=== PATIENT | male | born 1985 | race Caucasian/White ===

== ENCOUNTER 2024-11-11 06:20 | Outpatient (CLI) | payer OTHER, SELFPAY | END 2024-11-11 06:21 | disposition home or self-care (01) | LOC: AMB 11-12 12:37 | PROVIDERS: Visit Provider Family Medicine | DX: F29 Unspecified psychosis not due to a substance or known physiological condition (principal) | CPT/HCPCS: A0425; A0427 ==

== ENCOUNTER 2024-11-11 06:39 | Emergency (ER) | payer OTHER, SELFPAY ==
--- OUTSIDE RECORDS SUMMARY | 2024-11-11 06:41 | XMS_ITS | Encounter Summary ---
Author Organization [place] Address Formerly [facility] [place] [address] Care Team Providers Care Economics Consultant Name Role Phone Ramirez Ponce MD Primary Care Provider [phone] Reason for Visit * Reason Onset Date Comments MH/CD Inpatient 09/07/2020 Encounter Details Date Type Department Care Team ([facility] Contact Info) Description 09/07/2020 Telephone [facility] Behavioral Health Intake [address] [place] [phone] Generic, Behavioral Intake, MH/CD Inpatient Social History Tobacco Use Types Packs/Day Years Used Date Smoking Tobacco: Former Cigarettes Q uit: 11/08/2006 Alcohol Use Standard Drinks/Week Comments No 0 (1 standard drink = 0.6 oz pur e alcohol) Adolescent Education Answer Date Record ed Getting School Help Needed Not on file 04/26 Sex and Gender Information Value Date Recorded Sex Assigned at Not on file Legal Sex Male 4:43 AM GARDEN WORKER Gender Identity Not on file Sexual Orientation Not on file COVID-19 Exposure Response Date Recorded In the last month, have you been in contact with someone who was confirmed or suspected to have Coronavirus / COVID-19? No / Unsure 09/08/2020 12:51 AM GARDEN WORKER documented as of this encounter Miscellaneous Notes * Telephone Encounter - Vipin Prado - 09/07/2020 6:59 PM GARDEN WORKER S: [facility] ED ([phone]) called to place a 35 y/o male for inpatient mental health treatment. B: Pt brought himself to the [facility] ED on 09/06/20 for evaluation of paranoia. Pt has not been sleeping much in recent days. He was seen in the ED on 09/03/20 for similar presentation of psychosis.At that time he was given Zyprexa and felt better and went home. Pt again has been feeling very paranoid, like he is seeing signs in the community that are telling him things, like someone is trying to murder him all the time. Pt reports that he doesn't feel safe. He reported last night he saw a red cross by the road and he took this to mean that he was in hell. Pt is paranoid about a sore throat he has been having and that this is being caused by a plant that is down the road from him. Pt thinks someone has been getting into his house and taking things. Pt appears highly anxious. He reports he has been struggling with getting out of the house. Pt reports seeing things that become signsor codes that trigger thoughts he needs to manage. He also stated to the commercial illustrator you need to close [employer] [facility] [place] and [facility] multiple times. Pt denies taking any street drugs or alcohol. UDS is positive for benzodiazepines. Negative for SARS-CoV-2. Medically cleared. A: 72 hour hold. R: Left message for [place] Behavioral operations and maintenance technican at 1913. rotor assembler approved admission to [address] [place] [address] at 1923. Unit notified at 193. ED notified at 1940. Patient cleared and ready for behavioral bed placement: Yes EN WORKER documented in this encounter Plan of Treatment Not on file documented as of this encounter Visit Diagnoses Not on filedocumented in this encounter Care Teams Economics Consultant Relationship Specialty Start Date End Date Ramirez Ponce MD [address] [place] [address] PCP - General 04/04/07 documented as of this encounter
--- OUTSIDE RECORDS SUMMARY | 2024-11-11 06:41 | XMS_ITS | Clinical Summary ---
Author Organization [place] Address [address] [place] [address] Care Team Providers Care Draughtsman Name Role Phone Ramirez Ponce MD Primary Care Provider [phone] Allergies No known active allergies Medications QUEtiapine (SEROQUEL) 300 MG tabletIndication s:Schizoaffectiv e disorder, unspecified type (H) Take 1 tablet (300 mg) by mouth At Bedtime 30 tablet 09/10/2020 Active QUEtiapine (SEROQUEL) 50 MG tabletIndication s:Schizoaffectiv e disorder, unspecified type (H) Take 1 tablet (50 mg) by mouth 2 times daily as needed (anxiety) 30 tablet 09/11/2020 Active Active Problems Problem Noted Date Diagnosed Date Suicidal behavior 09/08/2020 CARDIOVASCULAR SCREENING; LDL GOAL LESS THAN 160 08/20/2009 Anxiety state 10/20/2007 Cannabis abuse 10/20/2007 Panic disorder without agoraphobia 10/20/2007 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 10/20/2007 Immunizations Name Administration Dates Next Due TDAP Vaccine (Adacel) 11/29/2008 Family History Medical History Relation Comments Unknown/Adopted Other Relation Status Comments Other Social History Tobacco Use Types Packs/Day Years [...] on file Legal Sex Male 4:43 AM CONSUMER AFFAIRS MANAGER Gender Identity Not on file Sexual Orientation Not on file Last Filed Vital Signs Vital Sign Reading Time Taken Comments Blood Pressure 107/70 09/16/2020 6:00 AM CONSUMER AFFAIRS MANAGER Pulse 95 09/16/2020 6:00 AM CONSUMER AFFAIRS MANAGER Temperature 37.2 C (98.9 F) 09/16/2020 6:00 AM CONSUMER AFFAIRS MANAGER Respiratory Rate 16 09/16/2020 6:00 AM CONSUMER AFFAIRS MANAGER Oxygen Saturation 98% 09/16/2020 6:00 AM CONSUMER AFFAIRS MANAGER Inhaled Oxygen Concentration - - Weight 69.5 kg (153 lb 3.2 oz) 09/08/2020 1:35 A M CONSUMER AFFAIRS MANAGER Height 177.8 cm (5' 10) 09/08/2020 1:35 AM CONSUMER AFFAIRS MANAGER Body Mass Index 21.98 09/08/2020 1:35 AM CONSUMER AFFAIRS MANAGER Plan of Treatment Not on file Insurance CHOICE * Guarantor: LUCITA KOLB Account Type Relation to Patient Date of Phone Billing Address Employer Related Employer [phone] [facility] Business e via [place] [employer] [id number] [facility] CHOICE Advance Directives For more information, please contact: [phone] * Full Code (Latest Code Status on File) Date Activated Date Inactivated Comments 09/08/2020 1:41 AM 09/16/2020 2:35 PM All basic and advanced life-sustaining interventions are performed as appropriate Question Answer Comments Code status determined by: Other (please yeison t) Care Teams Draughtsman Relationship Specialty Start Date End Date Ramirez Ponce MD [address] [facility] [place] [address] PCP - General 04/04/07
--- OUTSIDE RECORDS SUMMARY | 2024-11-11 06:41 | XMS_ITS | Clinical Summary ---
Author Organization [employer] [facility] Address [address] [place] [address] Care Team Providers Care C Wpf Developer Name Role Phone Pcp, No Primary Care Provider Unavailabl e Allergies No known active allergies Medications QUEtiapine 100 mg tabletIndicatio ns:Schizoaffect adeel disorder, bipolar type (HC),Paranoia (HC) Take 1 Tablet (100 mg) by mouth at bedtime. 90 Tablet 5 Active QUEtiapine (SEROQUEL) 100 mg tabletIndicatio ns:Schizoaffect adeel disorder, bipolar type (HC),Paranoia (HC) Take 1 Tablet (100 mg) by mouth at bedtime. 90 Tablet 1 5 10/19/19 25 Discontinu ed(*Availa bility/For mulary change/Cos t of medication ) Active Problems Problem Noted Date Diagnosed Date Major depressive disorder, r ecurrent episode, severe, without mention of psychotic behavior 10/20/2007 Panic disorder without agoraphobia 10/20/2007 Anxiety state, unspecified 10/20/2007 Cannabis abuse, unspecified 10/20/2007 Encounters Date Type Department Care Team Description 10/31/2024 Travel 10/30/2024 Travel 10/17/2024 Refill [facility] [address] [place] [address] Obdulia Bundy NP Refill Request (Quetiapine) 09/24/2024 7:30 AM CDT Office Visit [facility] [address] [place] [address] Malecha, Obdulia Katelyn, DIRECT CHILL CASTER Medication Management (Things are fine) 09/24/2024 Travel 09/17/2024 Refill [facility] [address] [place] [address] Obdulia Bundy NP Refill Request (Quetiapine) from Last 3 Months Immunizations Immunization Administration Dates Next Due DTP 02/09/1988,1983,1983 ,1983 Hepatitis B (Peds) 08/16/1996,02/23/1996 MMR 11/16/1995,10/25/1984 Oral Polio Vaccine 02/09/1988,1983, 984,1983 Td (Age >=7 Years) 05/17/2022,02/23/1996 Tdap 11/29/2008 Tdap, Unspecified 11/29/2008 Social History Tobacco Use Types Packs/Day Years Used Date Smoking Tobacco: Never Smokeless Tobacco: Never Tobacco Cessation:Counseling Given: Not Answered Alcohol Use Standard Drinks/Week Comments Not Currently 0 (1 standard drink = 0.6 oz pur e alcohol) PHQ-2 Answer Date Recorded PHQ-2 TOTAL SCORE 2 09/24/2024 Alcohol Use Answer Date Recorded How often do you have a drink containing alcohol ? 1 07/14/2021 How many drinks containing a lcohol do you have on a typical day when you are drinking? 0 07/14/2021 Frequency of Binge Drinking Not on file 10/2021 Financial Resource Strain Answer Date R ecorded Difficulty of Paying Living Expenses Not on file 07/11/2021 Difficulty of Paying Living Expenses Not on file 07/11/2021 Sex and Gender Information Value Date Recorded Sex Assigned at Not on file Legal Sex Male 7:22 AM CORPORATE RESPONSIBILITY OFFICER Gender Identity Not on file Sexual Orientation Not on file Obstetrics History Last Filed Vital Signs Vital Sign Reading Time Taken Comments Blood Pressure 120/76 09/24/2024 7:40 AM CDT Pulse 80 09/24/2024 7:40 AM CDT Temperature 37 C (98.6 F) 09/24/2020 8:16 AM CDT Respiratory Rate 20 08/24/2017 11:58 AM CORPORATE RESPONSIBILITY OFFICER Oxygen Saturation 97% 05/17/2022 8:05 AM CORPORATE RESPONSIBILITY OFFICER Inhaled Oxygen Concentration - - Weight 87 kg (191 lb 11.2 oz) 09/24/2024 7:40 AM CDT Height 175.3 cm (5' 9) 08/16/2022 8:05 AM CORPORATE RESPONSIBILITY OFFICER Body Mass Index 28.31 08/16/2022 8:05 AM CORPORATE RESPONSIBILITY OFFICER Plan of Treatment Health Maintenance Due Date Last Done Comments BMI (ht and wt on same day) for age 18+ 08/16/2023 08/16/2022, 05/17/2022, 12/16/2020, Additional history exists COVID-19 vaccine series ( season) 2024 Influenza Vaccine (Season Ended) 2025 Depression screening for age 12+ 09/24/2025 09/24/2024, 03/29/2024, 11/01/2023, Additional history exists Lipids for age 35-44 10/31/2029 10/31/2024, 09/24/2024, 06/06/2023, Additional history exists Tetanus booster 05/17/2032 05/17/2022, 11/09, 11/29/2008, Additional history exists Tdap Completed 11/29/2008, 11/29/2008 HIV for age 15-65 Completed 05/17/2022 Hepatitis C screening for age 18-79 Completed 05/17/2022 Pneumococcal series for age 6-49 Aged Out No longer eligible based on patient's age to complete this topic Procedures Procedure Name Priority Date/Time Associated Diagnosis Comments LIPID PANEL W REFLEX MEASURED LDL Routine 10/31/2024 10:45 AM CDT long term acute care registered nurse current use of antipsychotic medication HEPATIC FUNCTION PANEL Routine 10/31/2024 10:45 AM CDT long term acute care registered nurse current use of antipsychotic medication LIPID PANEL W REFLEX MEASURED LDL Routine 09/24/2024 7:53 AM CDT jail current use of antipsychotic medication HEMOGLOBIN A1C Routine 09/24/2024 7:53 AM CDT jail current use of antipsychotic medication COMP METABOLIC PANEL Routine 09/24/2024 7:53 AM CDT jail current use of antipsychotic medication TSH Routine 09/24/2024 7:53 AM CDT long term acute care registered nurse current use of antipsychotic medication CBC WITH AUTO DIFFERENTIAL Routine 09/24/2024 7:53 AM CDT jail current use of antipsychotic medication ANTI HIV 1/2 Routine 05/17/2022 8:35 AM CORPORATE RESPONSIBILITY OFFICER Screen for STD (sexually transmitted disease) ANTI HCV Routine 05/17/2022 8:35 AM CORPORATE RESPONSIBILITY OFFICER Encounter for hepatitis C screening test for low risk patient from Last 3 Months or Most Recently Relevant to Health Maintenance Results * (ABNORMAL) LIPID PANEL W REFLEX MEASURED LDL (10/31/2024 10:45 AM CDT) Only the most recent of2 resultswithin the time period is included. Pathologist [facility] CHOLESTEROL, TOTAL 137 <200 mg/dL [facility] HDL CHOLESTEROL 36(L) > OR = 40 mg/dL [facility] TRIGLYCERIDES 67 <150 mg/dL [facility] LDL-CHOLESTEROL 86 mg/dL (calc) [facility] Comment: Reference range: <100 Desirable range <100 mg/dL for primary prevention; <70 mg/dL for patients with CHD or diabetic patients with > or = 2 CHD risk factors. LDL-C is now calculated using the Leon-Grover calculation, which is a validated novel method providing better accuracy than the Friedewald equation in the estimation of LDL-C. Leon SS et al. FIDENCIO. 2013;310(19): 5522-6547 (http://education.[employer]faq/EAM578) CHOL/HDLC RATIO 3.8 <5.0 (calc) [facility] NON HDL CHOLESTEROL 101 <130 mg/dL (calc) [facility] Comment: For patients with diabetes plus 1 major ASCVD risk factor, treating to a non-HDL-C goal of <100 mg/dL (LDL-C of <70 mg/dL) is considered a therapeutic option. Blood BLOOD SPECIMEN / Unknown 10/31/2024 10:45 AM CDT 10/31/2024 10:46 AM CDT Obdulia Bundy DIRECT CHILL CASTER CHEMISTRY Final Re sult [facility] [address] [place] [address], [place] [phone] [email or web address] [address] [place] [address] * HEPATIC FUNCTION PANEL (10/31/2024 10:45 AM CDT) Pathologist [facility] PROTEIN, TOTAL 8.0 6.1 - 8.1 g/dL [facility] ALBUMIN 4.8 3.6 - 5.1 g/dL [facility] GLOBULIN 3.2 1.9 - 3.7 g/dL (calc) [facility] ALBUMIN/GLOBULIN RATIO 1.5 1.0 - 2.5 (calc) [facility] BILIRUBIN, TOTAL 0.9 0.2 - 1.2 mg/dL [facility] BILIRUBIN, DIRECT 0.2 < OR = 0.2 mg/dL [facility] BILIRUBIN, INDIRECT 0.7 0.2 - 1.2 mg/dL (calc) [facility] ALKALINE PHOSPHATASE 74 36 - 130 U/L [email or web address] AST 21 10 - 40 U/L [email or web address] ALT 26 9 - 46 U/L [email or web address] Blood BLOOD SPECIMEN / Unknown 10/31/2024 10:45 AM CDT 10/31/2024 10:46 AM CDT Obdulia Bundy DIRECT CHILL CASTER CHEMISTRY Final Re sult [facility] [address] [place] [address], [place] [phone] [email or web address] [address] [place] [address] * HEMOGLOBIN A1C (09/24/2024 7:53 AM CDT) HEMOGLOBIN A1C 5.2 <5.7 % of total Hgb [facility] Comment: For the purpose of screening for the presence of diabetes: <5.7% Consistent with the absence of diabetes 5.7-6.4% Consistent with increased risk for diabetes (prediabetes) > or =6.5% Consistent with diabetes This assay result is consistent with a decreased risk of diabetes. Currently, no consensus exists regarding use of hemoglobin A1c for diagnosis of diabetes in children. According to [place] Diabetes Association (ADA) guidelines, hemoglobin A1c <7.0% represents optimal control in non- diabetic patients. Different metrics may apply to specific patient populations. Standards of Medical Care in Diabetes(ADA). Blood BLOOD SPECIMEN / Unknown 09/24/2024 7:53 AM CDT 09/24/2024 7:53 AM CDT Obdulia Bundy DIRECT CHILL CASTER CHEMISTRY Final Re sult [facility] [address] [address], [place] [phone] [email or web address] [address] [place] [phone] * TSH (09/24/2024 7:53 AM CDT) Pathologist [facility] TSH 1.54 0.40 - 4.50 mIU/L [email or web address] Blood BLOOD SPECIMEN / Unknown 09/24/2024 7:53 AM CDT 09/24/2024 7:53 AM CDT Obdulia Bundy DIRECT CHILL CASTER CHEMISTRY Final Re sult [facility] [address] [place] [address], [place] [phone] [facility] [address] [place] [address] * CBC AND DIFFERENTIAL (09/24/2024 7:53 AM CDT) [facility] WHITE BLOOD CELL COUNT 6.3 3.8 - 10.8 Thousand/u L [facility] RED BLOOD CELL COUNT 5.02 4.20 - 5.80 Million/uL [facility] HEMOGLOBIN 15.0 13.2 - 17.1 g/dL [facility] HEMATOCRIT 44.3 38.5 - 50.0 % [facility] MCV 88.2 80.0 - 100.0 fL [facility] MCH 29.9 27.0 - 33.0 pg [facility] MCHC 33.9 32.0 - 36.0 g/dL [facility] Comment: For adults, a slight decrease in the calculated MCHC value (in the range of 30 to 32 g/dL) is most likely not clinically significant; however, it should be interpreted with caution in correlation with other red cell parameters and the patient's clinical condition. RDW 13.0 11.0 - 15.0 % [facility] PLATELET COUNT 200 140 - 400 Thousand/u L [facility] MPV 11.0 7.5 - 12.5 fL [facility] ABSOLUTE NEUTROPHILS 3,182 1,500 - 7,800 cells/uL [facility] ABSOLUTE LYMPHOCYTES 2,407 850 - 3,900 cells/uL [facility] ABSOLUTE MONOCYTES 586 200 - 950 cells/uL [facility] ABSOLUTE EOSINOPHILS 107 15 - 500 cells/uL [facility] ABSOLUTE BASOPHILS 19 0 - 200 cells/uL [facility] NEUTROPHILS 50.5 % [facility] LYMPHOCYTES 38.2 % [facility] MONOCYTES 9.3 % [facility] EOSINOPHILS 1.7 % [facility] BASOPHILS 0.3 % [facility] Blood BLOOD SPECIMEN / Unknown 09/24/2024 7:53 AM CDT 09/24/2024 7:53 AM CDT Obdulia Bundy DIRECT CHILL CASTER HEMATOLOGY Final Re sult [facility] [address] [place] [address], [facility] [address] [place] [address] * (ABNORMAL) COMP METABOLIC PANEL (09/24/2024 7:53 AM CDT) GLUCOSE 82 65 - 99 mg/dL [facility] Comment: Fasting reference interval UREA NITROGEN (BUN) 14 7 - 25 mg/dL [facility] CREATININE 1.20 0.60 - 1.29 mg/dL [facility] EGFR 78 > OR = 60 mL/min/1. 73m2 [facility] BUN/CREATININE RATIO SEE NOTE: 6 - 22 (calc) [facility] Comment: Not Reported: BUN and Creatinine are within reference range. SODIUM 140 135 - 146 mmol/L [facility] POTASSIUM 4.7 3.5 - 5.3 mmol/L [facility] CHLORIDE 107 98 - 110 mmol/L [facility] CARBON DIOXIDE 24 20 - 32 mmol/L [facility] CALCIUM 9.0 8.6 - 10.3 mg/dL [facility] PROTEIN, TOTAL 7.1 6.1 - 8.1 g/dL [facility] ALBUMIN 4.2 3.6 - 5.1 g/dL [facility] GLOBULIN 2.9 1.9 - 3.7 g/dL (calc) [facility] ALBUMIN/GLOBULIN RATIO 1.4 1.0 - 2.5 (calc) [facility] BILIRUBIN, TOTAL 0.4 0.2 - 1.2 mg/dL [facility] ALKALINE PHOSPHATASE 98 36 - 130 U/L [facility] AST 45(H) 10 - 40 U/L [facility] ALT 55(H) 9 - 46 U/L [facility] Blood BLOOD SPECIMEN / Unknown 09/24/2024 7:53 AM CDT 09/24/2024 7:53 AM CDT Obdulia Bundy DIRECT CHILL CASTER CHEMISTRY Final Re sult [facility] [address] [place] [address], [email or web address] [address] [place] [address] * ANTI HCV (05/17/2022 8:35 AM CORPORATE RESPONSIBILITY OFFICER) HEPATITIS C ANTIBODY Non-React adeel Non-React adeel 05/17/2022 3:45 PM CORPORATE RESPONSIBILITY OFFICER [facility] Comment:Antibodies to HCV no t detected; does not exclude the possibility of exposure to HCV. Blood BLOOD SPECIMEN / Unknown Venipuncture / Unknown 05/17/2022 8:35 AM CORPORATE RESPONSIBILITY OFFICER 05/17/2022 8:39 AM CORPORATE RESPONSIBILITY OFFICER us Lance Basilio MD SEND OUTS Final Re sult Performing Organization Address [facility]/ZIP Co de Phone Number [facility] [address] [place] [address], * ANTI HIV 1/2 (05/17/2022 8:35 AM CORPORATE RESPONSIBILITY OFFICER) Pathologist [facility] HIV-1/HIV-2 ANTIBODY Non-Reacti ve Non-Reacti ve 05/17/2022 3:43 PM CORPORATE RESPONSIBILITY OFFICER [facility] Comment:HIV-1 p24 and HIV-1/ HIV-2 Ab not detected. Blood BLOOD SPECIMEN / Unknown Venipuncture / Unknown 05/17/2022 8:35 AM CORPORATE RESPONSIBILITY OFFICER 05/17/2022 8:39 AM CORPORATE RESPONSIBILITY OFFICER us Lance Basilio MD SEND OUTS Final Re sult [facility] [address] [place] [address], from Last 3 Months or Most Recently Relevant to Health Maintenance Insurance [facility] Advance Directives * Full Code (Latest Code Status on File) Date Activated Date Inactivated Comments 10/20/2007 2:33 AM 10/23/2007 5:14 PM Care Teams C Wpf Developer Relationship Specialty Start Date End Date Pcp, Billie . PCP - General 10/19/07
--- OUTSIDE RECORDS SUMMARY | 2024-11-11 06:41 | XMS_ITS | Encounter Summary ---
Author Organization [facility] Address [address] [place] [address] Care Team Providers Care Art Gallery Director Name Role Phone Ramirez Ponce MD Primary Care Provider [phone] Reason for Visit * Reason Comments Medication Refill Encounter Details Date Type Department Care Team (Late st Contact Info) Description 09/30/2020 Refill [facility] [address] [phone] Tatyana Serrano, [place] [address] [place] [address] Medication Refill Social History Tobacco Use Types Packs/Day Years Used Date Smoking Tobacco: Former Cigarettes Q uit: 11/08/2006 Alcohol Use Standard Drinks/Week Comments No 0 (1 standard drink = 0.6 oz pur e alcohol) Sex and Gender Information Value Date Recorded Sex Assigned at Not on file Legal Sex Male 4:43 AM PLANNER SCHEDULER Gender Identity Not on file Sexual Orientation Not on file COVID-19 Exposure Response Date Recorded In the last month, have you been in contact with someone who was confirmed or suspected to have Coronavirus / COVID-19? No / Unsure 09/08/2020 12:51 AM PLANNER SCHEDULER documented as of this encounter Plan of Treatment Not on file documented as of this encounter Visit Diagnoses Diagnosis Schizoaffective disorder, unspecified type (H) documented in this encounter Care Teams Art Gallery Director Relationship Specialty [place] [address] [place] [address] [place] [address] PCP - General 04/04/07 documented as of this encounter
--- OUTSIDE RECORDS SUMMARY | 2024-11-11 06:41 | XMS_ITS | Encounter Summary ---
Author Organization [place] Address [address] [place] [address] Care Team Providers Care Rug Designer Name Role Phone Ramirez Ponce MD Primary Care Provider [phone] Reason for Visit * Reason Comments Medication Refill Encounter Details Date Type Department Care Team (Late st Contact Info) Description 10/15/2020 Refill [facility] [address] [phone] Tatyana Serrano, [place] [address] [place] [phone] Medication Refill Social History Tobacco Use Types Packs/Day Years Used Date Smoking Tobacco: Former Cigarettes Q uit: 11/08/2006 Alcohol Use Standard Drinks/Week Comments No 0 (1 standard drink = 0.6 oz pur e alcohol) Sex and Gender Information Value Date Recorded Sex Assigned at Not on file Legal Sex Male 4:43 AM MUSHROOM SPAWN MAKER Gender Identity Not on file Sexual Orientation Not on file documented as of this encounter Plan of Treatment Not on file documented as of this encounter Visit Diagnoses Diagnosis Schizoaffective disorder, unspecified type (H) documented in this encounter Care Teams Rug Designer Relationship Specialty Start Date End Date Ramirez Ponce MD [address] [facility] [place] [address] PCP - General 04/04/07 documented as of this encounter
[2024-11-11 06:51] VITALS: BP 147/108; PULSE 98; RESP 16; TEMP 35.5; O2SAT 98
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
--- OUTSIDE RECORDS SUMMARY | 2024-11-11 07:33 | XMS_ITS | Clinical Summary ---
Author Organization [place] Address [address] [place] [address] Care Team Providers Care Retail Department Manager Name Role Phone Ramirez Ponce MD Primary Care Provider [phone] Allergies No known active allergies Medications QUEtiapine [...] on file Legal Sex Male 4:43 AM OPERATIONS ANALYST Gender Identity Not on file Sexual Orientation Not on file Last Filed Vital Signs Vital Sign Reading Time Taken Comments Blood Pressure 107/70 09/16/2020 6:00 AM OPERATIONS ANALYST Pulse 95 09/16/2020 6:00 AM OPERATIONS ANALYST Temperature 37.2 C (98.9 F) 09/16/2020 6:00 AM OPERATIONS ANALYST Respiratory Rate 16 09/16/2020 6:00 AM OPERATIONS ANALYST Oxygen Saturation 98% 09/16/2020 6:00 AM OPERATIONS ANALYST Inhaled Oxygen Concentration - - Weight 69.5 kg (153 lb 3.2 oz) 09/08/2020 1:35 A M OPERATIONS ANALYST Height 177.8 cm (5' 10) 09/08/2020 1:35 AM OPERATIONS ANALYST Body Mass Index 21.98 09/08/2020 1:35 AM OPERATIONS ANALYST Plan of Treatment Not on file Insurance CHOICE * Guarantor: LUCITA KOLB Account Type Relation to Patient Date of Phone Billing Address Employer Related Employer [id number] [facility] [employer] [place] [id number] [facility] CHOICE Advance Directives For more information, please contact: [phone] * Full Code (Latest Code Status on File) Date Activated Date Inactivated Comments 09/08/2020 1:41 AM 09/16/2020 2:35 PM All basic and advanced life-sustaining interventions are performed as appropriate Question Answer Comments Code status determined by: Other (please yeison t) Care Teams Retail Department Manager Relationship Specialty Start Date End Date Ramirez Ponce MD [address] [facility] [place] [address] PCP - General 04/04/07
--- OUTSIDE RECORDS SUMMARY | 2024-11-11 07:33 | XMS_ITS | Encounter Summary ---
Author Organization [place] Address [address] [place] [address] Care Team Providers Care Wet Machine Operator Name Role Phone Ramirez Ponce MD Primary Care Provider [phone] Reason for Visit * Reason Comments Medication Refill Encounter Details Date Type Department Care Team (Late st Contact Info) Description 10/15/2020 Refill [facility] [address] [phone] Tatyana Serrano, [place] [address] [place] [address] [phone] Medication Refill Social History Tobacco Use Types Packs/Day Years Used Date Smoking Tobacco: Former Cigarettes Q uit: 11/08/2006 Alcohol Use Standard Drinks/Week Comments No 0 (1 standard drink = 0.6 oz pur e alcohol) Sex and Gender Information Value Date Recorded Sex Assigned at Not on file Legal Sex Male 4:43 AM CELL PHONE REPAIR TECHNICIAN Gender Identity Not on file Sexual Orientation Not on file documented as of this encounter Plan of Treatment Not on file documented as of this encounter Visit Diagnoses Diagnosis Schizoaffective disorder, unspecified type (H) documented in this encounter Care Teams Wet Machine Operator Relationship Specialty Start Date End Date Ramirez Ponce MD [address] [facility] [place] [address] PCP - General 04/04/07 documented as of this encounter
--- OUTSIDE RECORDS SUMMARY | 2024-11-11 07:33 | XMS_ITS | Encounter Summary ---
Author Organization [place] Address [facility] [place] [address] Care Team Providers Care Roller Embosser Name Role Phone Ramirez Ponce MD Primary Care Provider [phone] Reason for Visit * Reason Onset Date Comments MH/CD Inpatient 09/07/2020 Encounter Details Date Type Department Care Team ([facility] Contact Info) Description 09/07/2020 Telephone [facility] Behavioral Health Intake [address] [place] [phone] Generic, Behavioral Intake, MH/CD Inpatient Social [...] on file Legal Sex Male 4:43 AM CREDIT AND COLLECTIONS ANALYST Gender Identity Not on file Sexual Orientation Not on file COVID-19 Exposure Response Date Recorded In the last month, have you been in contact with someone who was confirmed or suspected to have Coronavirus / COVID-19? No / Unsure 09/08/2020 12:51 AM CREDIT AND COLLECTIONS ANALYST documented as of this encounter Miscellaneous Notes * Telephone Encounter - Vipin Prado - 09/07/2020 6:59 PM CREDIT AND COLLECTIONS ANALYST S: [facility] ED ([phone]) called to place a 35 y/o male for inpatient mental health treatment. B: Pt brought himself to the [facility] ED on 09/06/20 for evaluation of paranoia. [...] to manage. He also stated to the top lift and automatic window repairer you need to close [employer] [facility] [place] and [facility] multiple times. Pt denies taking any street drugs or alcohol. UDS is positive for benzodiazepines. Negative for SARS-CoV-2. Medically cleared. A: 72 hour hold. R: Left message for [place] Behavioral bill recapitulation clerk at 1913. machine scallop cutter approved admission to [address] [place] [address] at 1923. Unit notified at 193. ED notified at 1940. Patient cleared and ready for behavioral bed placement: Yes IT AND COLLECTIONS ANALYST documented in this encounter Plan of Treatment Not on file documented as of this encounter Visit Diagnoses Not on filedocumented in this encounter Care Teams Roller Embosser Relationship Specialty Start Date End Date Ramirez Ponce MD [address] [place] [address] PCP - General 04/04/07 documented as of this encounter
--- OUTSIDE RECORDS SUMMARY | 2024-11-11 07:33 | XMS_ITS | Encounter Summary ---
Author Organization [facility] Address [address] [place] [address] Care Team Providers Care Ground Instructor Advanced Name Role Phone Ramirez Ponce MD Primary Care Provider [phone] Reason for Visit * Reason Comments Medication Refill Encounter Details Date Type Department Care Team (Late st Contact Info) Description 09/30/2020 Refill [facility] [address] [phone] Tatyana Serrano, [place] [address] [place] [phone] Medication Refill Social History Tobacco Use Types Packs/Day Years Used Date Smoking Tobacco: Former Cigarettes Q uit: 11/08/2006 Alcohol Use Standard Drinks/Week Comments No 0 (1 standard drink = 0.6 oz pur e alcohol) Sex and Gender Information Value Date Recorded Sex Assigned at Not on file Legal Sex Male 4:43 AM AUTOMOBILE WRECKER Gender Identity Not on file Sexual Orientation Not on file COVID-19 Exposure Response Date Recorded In the last month, have you been in contact with someone who was confirmed or suspected to have Coronavirus / COVID-19? No / Unsure 09/08/2020 12:51 AM AUTOMOBILE WRECKER documented as of this encounter Plan of Treatment Not on file documented as of this encounter Visit Diagnoses Diagnosis Schizoaffective disorder, unspecified type (H) documented in this encounter Care Teams Ground Instructor Advanced Relationship Specialty [place] [address] [place] [address] [place] [address] PCP - General 04/04/07 documented as of this encounter
--- OUTSIDE RECORDS SUMMARY | 2024-11-11 07:34 | XMS_ITS | Clinical Summary ---
Author Organization [facility] Address [address] [place] [address] Care Team Providers Care Chute Tender Name Role Phone Pcp, No Primary Care [...] Description 10/31/2024 Travel 10/30/2024 Travel 10/17/2024 Refill [facility] [address] [place] [address] Obdulia Bundy NP Refill Request (Quetiapine) 09/24/2024 7:30 AM CDT Office Visit [facility] [address] [place] [address] Malecha, Obdulia Katelyn, DIRECTOR OF ACQUISITIONS Medication Management (Things are fine) 09/24/2024 Travel 09/17/2024 Refill [facility] [address] [place] [address] Obdulia Bundy NP Refill Request (Quetiapine) from [...] on file Legal Sex Male 7:22 AM DIRECTOR OF ACCOUNTS RECEIVABLE Gender Identity Not on file Sexual Orientation Not on file Obstetrics History Last Filed Vital Signs Vital Sign Reading Time Taken Comments Blood Pressure 120/76 09/24/2024 7:40 AM CDT Pulse 80 09/24/2024 7:40 AM CDT Temperature 37 C (98.6 F) 09/24/2020 8:16 AM CDT Respiratory Rate 20 08/24/2017 11:58 AM DIRECTOR OF ACCOUNTS RECEIVABLE Oxygen Saturation 97% 05/17/2022 8:05 AM DIRECTOR OF ACCOUNTS RECEIVABLE Inhaled Oxygen Concentration - - Weight 87 kg (191 lb 11.2 oz) 09/24/2024 7:40 AM CDT Height 175.3 cm (5' 9) 08/16/2022 8:05 AM DIRECTOR OF ACCOUNTS RECEIVABLE Body Mass Index 28.31 08/16/2022 8:05 AM DIRECTOR OF ACCOUNTS RECEIVABLE Plan of Treatment Health Maintenance Due Date [...] MEASURED LDL Routine 10/31/2024 10:45 AM CDT intermediate school teacher current use of antipsychotic medication HEPATIC FUNCTION PANEL Routine 10/31/2024 10:45 AM CDT intermediate school teacher current use of antipsychotic medication LIPID PANEL W REFLEX MEASURED LDL Routine 09/24/2024 7:53 AM CDT long-term current use of antipsychotic medication HEMOGLOBIN A1C Routine 09/24/2024 7:53 AM CDT long-term current use of antipsychotic medication COMP METABOLIC PANEL Routine 09/24/2024 7:53 AM CDT long-term current use of antipsychotic medication TSH Routine 09/24/2024 7:53 AM CDT intermediate school teacher current use of antipsychotic medication CBC WITH AUTO DIFFERENTIAL Routine 09/24/2024 7:53 AM CDT long-term current use of antipsychotic medication ANTI HIV 1/2 Routine 05/17/2022 8:35 AM DIRECTOR OF ACCOUNTS RECEIVABLE Screen for STD (sexually transmitted disease) ANTI HCV Routine 05/17/2022 8:35 AM DIRECTOR OF ACCOUNTS RECEIVABLE Encounter for hepatitis C screening test for low risk patient from Last 3 Months or Most Recently Relevant to Health Maintenance Results * (ABNORMAL) LIPID PANEL W REFLEX MEASURED LDL (10/31/2024 10:45 AM CDT) Only the most recent of2 resultswithin the time period is included. Pathologist [facility] CHOLESTEROL, TOTAL 137 <200 mg/dL [facility] [...] LDL-C. Leon SS et al. FIDENCIO. 2013;310(19): 2389-3945 (http://education.[employer]faq/AOR269) CHOL/HDLC RATIO 3.8 <5.0 (calc) [facility] NON HDL CHOLESTEROL 101 <130 mg/dL (calc) [facility] Comment: For patients with diabetes plus 1 major ASCVD risk factor, treating to a non-HDL-C goal of <100 mg/dL (LDL-C of <70 mg/dL) is considered a therapeutic option. Blood BLOOD SPECIMEN / Unknown 10/31/2024 10:45 AM CDT 10/31/2024 10:46 AM CDT Obdulia Bundy DIRECTOR OF ACQUISITIONS CHEMISTRY Final Re sult [employer] [facility] [address] [place] [address], [place] [phone] [facility] [address] [place] [address] * HEPATIC FUNCTION PANEL (10/31/2024 10:45 AM CDT) Pathologist [facility] PROTEIN, TOTAL 8.0 6.1 - 8.1 g/dL [...] ALKALINE PHOSPHATASE 74 36 - 130 U/L [facility] AST 21 10 - 40 U/L [facility] ALT 26 9 - 46 U/L [facility] Blood BLOOD SPECIMEN / Unknown 10/31/2024 10:45 AM CDT 10/31/2024 10:46 AM CDT Obdulia Bundy DIRECTOR OF ACQUISITIONS CHEMISTRY Final Re sult [employer] [facility] [address] [place] [address], [place] [phone] [facility] [address] [place] [address] * HEMOGLOBIN A1C (09/24/2024 7:53 AM CDT) HEMOGLOBIN A1C 5.2 <5.7 % of total Hgb [facility] Comment: For the purpose of screening for the presence of diabetes: <5.7% Consistent with the absence of diabetes 5.7-6.4% Consistent with increased risk for diabetes (prediabetes) > or =6.5% Consistent with diabetes This assay result is consistent with a decreased risk of diabetes. Currently, no consensus exists regarding use of hemoglobin A1c for diagnosis of diabetes in children. According to [place] Diabetes Association (ADA) guidelines, hemoglobin A1c <7.0% represents optimal control in non- diabetic patients. Different metrics may apply to specific patient populations. Standards of Medical Care in Diabetes(ADA). Blood BLOOD SPECIMEN / Unknown 09/24/2024 7:53 AM CDT 09/24/2024 7:53 AM CDT Obdulia Bundy DIRECTOR OF ACQUISITIONS CHEMISTRY Final Re sult [facility] [address] [address], [place] [phone] [facility] [address] [place] [phone] * TSH (09/24/2024 7:53 AM CDT) Pathologist [facility] TSH 1.54 0.40 - 4.50 mIU/L [facility] Blood BLOOD SPECIMEN / Unknown 09/24/2024 7:53 AM CDT 09/24/2024 7:53 AM CDT Obdulia Bundy DIRECTOR OF ACQUISITIONS CHEMISTRY Final Re sult [employer] [facility] [address] [place] [address], [place] [phone] [facility] [address] [place] [address] * CBC AND DIFFERENTIAL (09/24/2024 7:53 AM CDT) [facility] WHITE BLOOD CELL COUNT 6.3 3.8 - 10.8 Thousand/u L [facility] RED BLOOD CELL COUNT 5.02 4.20 - 5.80 Million/uL [facility] HEMOGLOBIN 15.0 13.2 - 17.1 g/dL [facility] [...] CDT 09/24/2024 7:53 AM CDT Obdulia Bundy DIRECTOR OF ACQUISITIONS HEMATOLOGY Final Re sult [employer] [facility] [address] [place] [address], [facility] [address] [place] [address] * (ABNORMAL) COMP METABOLIC PANEL (09/24/2024 7:53 AM CDT) GLUCOSE 82 65 - 99 mg/dL [facility] Comment: Fasting reference interval UREA [...] 3.6 - 5.1 g/dL [facility] GLOBULIN 2.9 1.9 - 3.7 g/dL (calc) [...] CDT 09/24/2024 7:53 AM CDT Obdulia Bundy DIRECTOR OF ACQUISITIONS CHEMISTRY Final Re sult [employer] [facility] [address] [place] [address], [facility] [address] [place] [address] * ANTI HCV (05/17/2022 8:35 AM DIRECTOR OF ACCOUNTS RECEIVABLE) HEPATITIS C ANTIBODY Non-React adeel Non-React adeel 05/17/2022 3:45 PM DIRECTOR OF ACCOUNTS RECEIVABLE [facility] Comment:Antibodies to HCV no t detected; does not exclude the possibility of exposure to HCV. Blood BLOOD SPECIMEN / Unknown Venipuncture / Unknown 05/17/2022 8:35 AM DIRECTOR OF ACCOUNTS RECEIVABLE 05/17/2022 8:39 AM DIRECTOR OF ACCOUNTS RECEIVABLE us Lance Basilio MD SEND OUTS Final Re sult Performing Organization Address [facility]/ZIP Co de Phone Number [facility] [address] [place] [address], * ANTI HIV 1/2 (05/17/2022 8:35 AM DIRECTOR OF ACCOUNTS RECEIVABLE) Pathologist [facility] HIV-1/HIV-2 ANTIBODY Non-Reacti ve Non-Reacti ve 05/17/2022 3:43 PM DIRECTOR OF ACCOUNTS RECEIVABLE [facility] Comment:HIV-1 p24 and HIV-1/ HIV-2 Ab not detected. Blood BLOOD SPECIMEN / Unknown Venipuncture / Unknown 05/17/2022 8:35 AM DIRECTOR OF ACCOUNTS RECEIVABLE 05/17/2022 8:39 AM DIRECTOR OF ACCOUNTS RECEIVABLE us Lance Basilio MD SEND OUTS Final Re sult [facility] [address] [place] [address], from Last 3 Months or Most Recently Relevant to Health Maintenance Insurance [facility] Advance Directives * Full Code (Latest Code Status on File) Date Activated Date Inactivated Comments 10/20/2007 2:33 AM 10/23/2007 5:14 PM Care Teams Chute Tender Relationship Specialty Start Date End Date Pcp, Billie . PCP - General 10/19/07
[2024-11-11 08:31] LABS: Albumin* 5.3 g/dL (3.3-5.0); Chloride* 105 mmol/L (96-114); Sodium* 143 mmol/L (135-149)
[2024-11-11 08:32] LABS: Potassium* 4.1 mmol/L (3.6-5.1)
[2024-11-11 08:34] LABS: Alanine Aminotransferase* 31 U/L (4-50); Alkaline Phosphatase* 64 U/L (40-150); Anion Gap 19 mEq/L (7-15); Aspartate Amino Transferase* 32 U/L (12-35); Bilirubin Direct* 0.5 mg/dL (0.0-0.5); Bilirubin Total* 1.1 mg/dL (0.1-1.5); Blood Urea Nitrogen* 22 mg/dL (5-24); Calcium* 10.3 mg/dL (8.4-10.6); Carbon Dioxide* 19 mmol/L (20-32); Estimated Glomerular Filt Rate 97 ml/min; Glucose* 134 mg/dL (60-115); Total Protein* 9.2 g/dL (6.0-8.3)
[2024-11-11 08:37] LABS: Acetaminophen* < 10.0 ug/mL (10.0-30.0); Ethanol* < 0.01 % (0.01-0.03); Salicylate* < 1.0 mg/dL (1.0-10)
[2024-11-11 08:44] LABS: Basophils Percent Auto 0.2 % (0.0-3.0); Hemoglobin* 16.3 gm/dL (13.5-17.5); Immature Granulocytes Pct Auto 0.2 %; Lymphocytes Percent Auto 9.9 % (20-44); Mean Corpuscular HGB Conc 34 gm/dL (32-36); Mean Corpuscular Hemoglobin 29 pg (26-34); Mean Corpuscular Volume 85 fL (80-100); Monocytes Percent Auto 6.9 % (0.0-11.0); Neutrophils Percent Auto 82.8 % (42.0-72.0); Platelet Count* 305 K/uL (140-440); RDW Coefficient of Variation % 12.3 % (11.5-15.5); Red Blood Count 5.66 m/uL (4.30-5.90); White Blood Count* 11.74 K/uL (4.50-11.00)
[2024-11-11 08:45] LABS: Slide Review Reflex No
[2024-11-11] MEDS: QUETIAPINE 25 MG TABLET 50 MG PO ×3 (10:57→22:28)
[2024-11-11 20:10] VITALS: RESP 16
[2024-11-11 20:40] VITALS: BP 144/97; PULSE 109; RESP 18; TEMP 37.4; O2SAT 98
[2024-11-11 20:49] LABS: Amphetamine Screen Urine Negative (Negative); Barbiturate Screen Urine Negative (Negative); Benzodiazepines Screen Urine Negative (Negative); Cannabinoid Screen Urine POSITIVE (Negative); Cocaine Screen Urine Negative (Negative); Methadone Screen Urine Negative (Negative); Methamphetamines Screen Urine Negative (Negative); Opiate Screen Urine Negative (Negative); Oxycodone Screen Urine Negative (Negative); Phencyclidine Screen Urine Negative (Negative); Tricyclic Antidepressant Urine POSITIVE (Negative)
[2024-11-11] MEDS: LORazepam 1 MG TABLET PO (23:49)
[2024-11-11 23:58] VITALS: RESP 18
[2024-11-12 02:57] VITALS: RESP 16
[2024-11-12] MEDS: OLANZapine 5 MG TAB.RAPDIS 10 MG PO (08:39)
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
--- NOTE | 2024-11-12 11:51 | ED.GENADULT ---
HPI - General Adult General Date Seen: 11/12/24 Chief complaint: Psychiatric Problem/Disorder Stated complaint: mental health Time Seen by Provider: 11/11/24 07:01 History of Present Illness HPI narrative: This note is an addendum to Dr. Coburn and Dr. Barnes see ER notes for this patient. Dr. Reeves responded to an overhead page for a ?Dr. MARIN. Patient is here on a 72 hour hold and apparently was anxious and trying to flee from the ER. He was stopped by nursing staff in the hallway at which time Dr. Dominic Cain was activated. Patient was brought back to his room and he walked voluntarily. On a hospital staff reports that when they stopped him in the hallway and more bring him back to the ER they did accidentally stepped on his left foot 5th toe. Patient came back to his room without any aggressive or violent behavior. He went back into his bed. He voluntarily accepted in I intramuscular injection of Zyprexa. Dr. Barnes reassume care of this patient after the immediate event and will order x-rays of the patient's toe for further evaluation. Related Data Home Medications ?Medication ?Instructions ?Recorded ?Confirmed quetiapine 100 mg tablet 100 mg PO QPM 11/11/24 11/11/24 Allergies Allergy/AdvReac Type Severity Reaction Status Date / Time No Known Drug Allergies Allergy Verified 11/11/24 06:58 PFSH PFS Social History Smoking Status: Unknown if ever smoked Exam Const: Vital Signs, click to edit/add: Vital Signs - 24 hr 11/11/24 20:10 11/11/24 20:40 11/11/24 23:58 Temperature 99.3 F Pulse Rate [Pulse Oximeter] 109 H Respiratory Rate 16 18 18 Blood Pressure [Ri ght Upper Arm] 144/97 H Pulse Oximetry 98 Oxygen Delivery Me thod Room Air Room Air Room Air 11/12/24 02:57 Temperature Pulse Rate [Pulse Oximeter] Respiratory Rate 16 Blood Pressure [Ri ght Upper Arm] Pulse Oximetry Oxygen Delivery Me thod Room Air Course Vital Signs Vital signs: Initial Vital Signs Temperature 96 F L 11/11/24 06:51 Temperature Source Temporal Artery Scan 11/11/24 06:51 Pulse Rate 98 11/11/24 06:51 Respiratory Rate 16 05/04/25 06:51 Blood Pressure 147/108 H 11/11/24 06:51 Blood Pressure Mean 121 H 11/11/24 06:51 Blood Pressure Position Sitting 11/11/24 06:51 Pulse Oximetry 98 11/11/24 06:51 Oxygen Delivery Method Room Air 11/11/24 06:51 Vital Signs Temperature 96 F L 11/11/24 06:51 Pulse Rate 98 11/11/24 06:51 Respiratory Rate 16 11/11/24 06:51 Blood Pressure 147/108 H 11/11/24 06:51 Pulse Oximetry 98 11/11/24 06:51 Oxygen Delivery Method Room Air 11/11/24 06:51 Temperature 99.3 F 11/11/24 20:40 Pulse Rate 109 H 11/11/24 20:40 Respiratory Rate 16 11/12/24 02:57 Blood Pressure 144/97 H 11/11/24 20:40 Pulse Oximetry 98 11/11/24 20:40 Oxygen Delivery Method Room Air 11/12/24 02:57 Medications Administered Medications: Generic Name Dose Route Start Last Admin Trade Name Freq PRN Reason Stop Dose Admin Lorazepam 1 mg 11/11/24 23:38 11/11/24 23:49 Lorazepam 1 Mg Tablet PO 1 mg NIGHTLY PRN Administration Insomnia Quetiapine Fumarate 50 mg 11/11/24 21:00 11/11/24 22:27 Quetiapine 25 Mg Tablet PO 50 mg HS ISA Administration Discontinued Medications Generic Name Dose Route Start Last Admin Trade Name Freq PRN Reason Stop Dose Admin Olanzapine 10 mg 11/12/24 08:31 11/12/24 08:39 Olanzapine 5 Mg Tab.Rapdis PO 11/12/24 08:32 10 mg ONCE ONE Administration Quetiapine Fumarate 50 mg 11/11/24 10:34 11/11/24 10:57 Quetiapine 25 Mg Tablet PO 11/11/24 10:35 50 mg ONCE ONE Administration Quetiapine Fumarate 50 mg 11/11/24 21:34 11/11/24 22:28 Quetiapine 25 Mg Tablet PO 11/11/24 21:35 50 mg ONCE ONE Administration Medical Decision Making Lab Data Labs: Lab Results 11/11/24 11/11/24 Range/Units 08:08 20:30 WBC 11.74 H (4.50-11.00) K/uL RBC 5.66 (4.30-5.90) m/uL Hgb 16.3 (13.5-17.5) gm/dL Hct 48.0 (37.0-53.0) % MCV 85 (80-100) fL MCH 29 (26-34) pg MCHC 34 (32-36) gm/dL RDW Coeff of Fay 12.3 (11.5-15.5) % Plt Count 305 (140-440) K/uL Neut % (Auto) 82.8 H (42.0-72.0) % Lymph % (Auto) 9.9 L (20-44) % [place] % (Auto) 6.9 (0.0-11.0) % Eos % (Auto) 0.0 (0.0-7.0) % Baso % (Auto) 0.2 (0.0-3.0) % Neut # (Auto) 9.70 H (1.7-7.0) K/uL Lymph # (Auto) 1.20 (0.90-2.90) K/uL [place] # (Auto) 0.80 (0.00-0.90) K/UL Eos # (Auto) 0.00 (0.00-0.50) K/uL Baso # (Auto) 0.00 (0.00-0.30) K/uL Abs Immat Gran (auto) 0.00 (0.00-0.30) K/uL Imm/Tot Granulo (auto) 0.2 % Sodium 143 (135-149) mmol/L Potassium 4.1 (3.6-5.1) mmol/L Chloride 105 (96-114) mmol/L Carbon Dioxide 19 L (20-32) mmol/L Anion Gap 19 H (7-15) mEq/L BUN 22 (5-24) mg/dL Creatinine 1.0 (0.5-1.5) mg/dL Estimated GFR 97 ml/min Glucose 134 H (60-115) mg/dL Calcium 10.3 (8.4-10.6) mg/dL Total Bilirubin 1.1 (0.1-1.5) mg/dL Direct Bilirubin 0.5 (0.0-0.5) mg/dL AST 32 (12-35) U/L ALT 31 (4-50) U/L Alkaline Phosphatase 64 (40-150) U/L Total Protein 9.2 H (6.0-8.3) g/dL Albumin 5.3 H (3.3-5.0) g/dL Salicylates < 1.0 L (1.0-10) mg/dL Urine Opiates Screen Negative (Negative) Ur Oxycodone Screen Negative (Negative) Urine Methadone Screen Negative (Negative) Acetaminophen < 10.0 (10.0-30.0) ug/mL Ur Barbiturates Screen Negative (Negative) U Tricyclic Antidepress POSITIVE A (Negative) Ur Phencyclidine Scrn Negative (Negative) Ur Amphetamines Screen Negative (Negative) U Methamphetamines Scrn Negative (Negative) U Benzodiazepines Scrn Negative (Negative) Urine Cocaine Screen Negative (Negative) U Marijuana (THC) Screen POSITIVE A (Negative) Ur Drug Screen Comment See Note Ethyl Alcohol < 0.01 (0.01-0.03) % Discharge Plan Discharge Clinical Impression: Psychosis, Delusions, Paranoia Prescriptions: No Action quetiapine 100 mg tablet 100 mg PO QPM Follow Up/Referrals: Provider,Not a Local [Primary Care Provider] -
[2024-11-12] MEDS: OLANZapine 5 MG/ML inj 10 MG IM (12:00)
[2024-11-12 12:29] VITALS: BP 120/89; PULSE 111; RESP 20; TEMP 36.4; O2SAT 96
[2024-11-12 17:33] VITALS: BP 126/95; PULSE 94; RESP 16; TEMP 35.9; O2SAT 99
== END 2024-11-12 18:28 ==
PROVIDERS: Family Medicine; Emergency Provider Student in an Organized Health Care Education/Training Program
DX: F29 Unspecified psychosis not due to a substance or known physiological condition (principal); F22 Delusional disorders; F23 Brief psychotic disorder
CPT/HCPCS: 36415; 73660; 80048; 80076; 80143; 80179; 80306; 82077; 85025; 99281; 99284; 99291; Q3014; A9270

== ENCOUNTER 2024-11-12 18:16 | Outpatient (CLI) | payer OTHER, SELFPAY | END 2024-11-12 18:17 | disposition home or self-care (01) | LOC: AMB 11-19 09:44 | PROVIDERS: Visit Provider Student in an Organized Health Care Education/Training Program | DX: F29 Unspecified psychosis not due to a substance or known physiological condition (principal); F22 Delusional disorders | CPT/HCPCS: A0425; A0428 ==